=== PATIENT | male | born 1965 | race Caucasian/White ===

== ENCOUNTER 2017-03-23 07:59 | Day surgery (SDC) | payer BC, OTHER ==
[2017-03-23] MEDS: Lactated Ringers 1,000 ML IV SCH ×2 (08:50→10:36)
[2017-03-23] MEDS ORDERED: Propofol 200 MG/20 ML SDV IV ONE (11:00)
--- NOTE | 2017-03-23 11:28 | PCM.OPNOTE ---
- General Post-Op/Procedure Note Date of Surgery/Procedure: 03/23/17 Operative Procedure(s): Colonoscopy Findings: Normal Colon Pre Op Diagnosis: Colon Cancer Screening Post-Op Diagnosis: Normal Colon Anesthesia Technique: MAC Primary Surgeon: Petros Cohen Pathology: none Output, Urine Amount: 0 EBL in mLs: 0 Complications: None Condition: Good
--- NOTE | 2017-03-23 14:04 | PREOP ---
ADMISSION DATE: 03/23/2017 PRE-OPERATIVE UPDATE: HISTORY OF PRESENT ILLNESS: This 51-year-old male presents today for his initial screening colonoscopy. He denies any recent rectal bleeding or change in bowel habits. PAST MEDICAL HISTORY: Shows diagnoses of coronary artery disease and hypercholesterolemia. These have been medically stable recently and there has been no significant change from his recent history and physical. CURRENT MEDICATIONS: 1. Lipitor. 2. Plavix. 3. Aspirin. 4. Vitamins. PAST SURGICAL HISTORY: He has had no previous abdominal surgery, but did have a coronary artery stent placed in 2013. ALLERGIES: He has no known drug allergies. FAMILY HISTORY: Negative for known colon cancer or colon polyps. REVIEW OF SYSTEMS: Shows no recent significant health-related complaints. PHYSICAL EXAMINATION: VITAL SIGNS: Temperature is 98.1, pulse is 64, blood pressure is 145/95. GENERAL: The patient is an adult male, currently in no acute distress. HEENT: Head is normocephalic. No scleral icterus. HEART: Regular without murmur. LUNGS: Clear. No wheezing is noted. ABDOMEN: Soft, flat, nontender, with no distention. EXTREMITIES: Show no edema. IMPRESSION: 1. Colon cancer screening. 2. History of coronary artery disease. PLAN: Colonoscopy. INFORMED CONSENT: I have discussed the proposed colonoscopy with the patient. Risks such as but not limited to bleeding and GI injury were discussed. He appears to understand and agrees to proceed. /[id number] NETTA/ALFREDO
--- NOTE | 2017-03-23 18:02 | OR ---
DATE OF OPERATION: 03/23/2017 SURGEON: Petros Cohen MD PREOPERATIVE DIAGNOSIS: Colon cancer screening. POSTOPERATIVE DIAGNOSIS: Normal colon. OPERATION PERFORMED: Colonoscopy. INDICATIONS FOR SURGERY: This 51-year-old male presents today for his initial screening colonoscopy. He denies any recent colon symptoms or family history of colon cancer. FINDINGS: The patient's colon and rectum appeared normal. PROCEDURE IN DETAIL: The patient was taken to the procedure room. He was given intravenous sedation and with him in the left lateral decubitus position, digital rectal exam was performed showing no rectal masses. The Olympus colonoscope was inserted into the rectum. A retroflexed examination of the rectal canal was performed. The scope was then carefully advanced under direct visualization through the entire length of the colon until the cecum was reached. Cecal acquisition was confirmed by noting the normal internal cecal anatomy including the appendiceal orifice and the ileocecal valve. The light was also noted to transilluminate the abdominal wall in the right lower quadrant. After examining the cecum, the scope was slowly withdrawn sequentially re-examining the colonic segments until the entire colon and rectum had been fully examined. The scope was then removed, and the patient was taken from the procedure room in satisfactory condition. ESTIMATED BLOOD LOSS: Zero. COMPLICATIONS: None. PROGNOSIS: Good. /[id number] NETTA/ALFREDO
== END 2017-03-23 12:20 | disposition home or self-care (01) ==
LOC: FB.SDS 07:59
PROVIDERS: ATTEND Surgery
DX: Z12.11 Encounter for screening for malignant neoplasm of colon (principal); I25.10 Atherosclerotic heart disease of native coronary artery without angina pectoris; E78.00 Pure hypercholesterolemia, unspecified; Z79.82 Long term (current) use of aspirin; Z79.899 Other long term (current) drug therapy; Z95.5 Presence of coronary angioplasty implant and graft
CPT/HCPCS: 45378; J2704; J7120